=== PATIENT | female | born 2005 | race Asian ===

== ENCOUNTER 2023-09-06 07:38 | Emergency (ER) | payer OTHER, SELFPAY ==
[2023-09-06 07:53] VITALS: BP 120/83; PULSE 78; RESP 16; TEMP 36.6; O2SAT 99; BMI 31.9
--- NOTE | 2023-09-06 08:03 | ED.BACK ---
HPI - Back Pain/Injury General Time Seen by Provider: 08:03 Date Seen: 09/06/23 Chief Complaint: Back Injury/Pain Stated Complaint: back pain Time Seen by Provider: 09/06/23 08:01 Source: patient and RN notes reviewed Mode of arrival: ambulatory Limitations: no limitations History of Present Illness HPI Narrative: Patient is a 18-year-old female coming in with thoracic back pain. She slipped down icy steps over the weekend, was wearing her backpack and actually landed on her buttocks. She states her tailbone initially hurt but that is not bothering her. It is to the left of her thoracic spine in the interscapular area where she is feeling the pain. Yesterday with breathing she was getting some sharp pain in that area that affected her breathing. She has tried Tylenol and ibuprofen, it is not really helping. Movement hurts. No difficulty breathing at this time. Did not hit her head, no loss of consciousness, no neck pain, no lumbar back pain. She has a [employer] student. Patient states there is no chance for . MD elicited complaint: back pain Work related injury: No Related Data Previous Rx's Medication Instructions Recorded cyclobenzaprine 10 mg tablet 10 mg PO TID PRN muscle spasm #30 09/06/23 tabs Allergies Allergy/AdvReac Type Severity Reaction Status Date / Time No Known Drug Allergies Allergy Verified 09/06/23 07:53 Review of Systems Narrative: As per HPI. [facility] Social History Smoking Status: Never smoker How often do you have a drink containing alcohol: monthly or less How often do you have six or more drinks on one occasion: Never AUDIT-C Alcohol total score: 1 Non-prescribed substance use: denies use Exam Const: Vital Signs, click to edit/add: Vital Signs - 24 hr 09/06/23 07:53 Temperature 98 F Pulse Rate [Pulse Oximeter] 78 Respiratory Rate 16 Blood Pressure [Ri ght Upper Arm] 120/83 Pulse Oximetry 99 Oxygen Delivery Me thod Room Air Patient is a 18-year-old female that is ambulatory into the ED. She is able to sit up. She is alert, interactive, no apparent distress. On inspection of her back, see no visible signs of trauma. She points to the interscapular area of her thoracic backward is hurting. She has some central tenderness and to the left of the spine. She actually can demonstrate range of motion. Lungs are clear, good air entry, no wheezing or crackles. CV regular rate and rhythm no murmur. Her gait is normal, upper extremity strength in neurologic function intact. No tenderness in the cervical or lumbar spine. Documenting provider has reviewed patient's vital signs: yes Course Course ED Course: Will obtain x-ray images of her thoracic spine. Given the mechanism, wearing her backpack, do think that this stands to be more musculoskeletal. She is a 18-year-old female, no advanced age, mechanism and timing seem to support probable musculoskeletal issues. If there is concern on the plane images, can consider advanced imaging. Did not want to send her to CT with this mechanism and presentation given the level of radiation. [place] plain imaging is more appropriate. Will see the x-ray report, guide therapy once x-ray results are known. Reevaluation(s) Time of Reevaluation #1: 08:51 Reevaluation #1: Reviewed with patient her x-ray findings of mild scoliosis and no fracture. She is aware that she has some scoliosis. She had just been using the Tylenol and ibuprofen p.r.n., nothing scheduled. We discussed adding in a muscle relaxant. She may want to consider physical therapy if ongoing symptoms, could work through the nurse practitioner at [place] for referral if ongoing symptoms. Vital Signs Vital signs: Initial Vital Signs Temperature 98 F 09/06/23 07:53 Temperature Source Temporal Artery Scan 09/06/23 07:53 Pulse Rate 78 09/06/23 07:53 Respiratory Rate 16 09/06/23 07:53 Blood Pressure 120/83 09/06/23 07:53 Blood Pressure Mean 95 09/06/23 07:53 Blood Pressure Position Sitting 09/06/23 07:53 Pulse Oximetry 99 09/06/23 07:53 Oxygen Delivery Method Room Air 09/06/23 07:53 Vital Signs Temperature 98 F 09/06/23 07:53 Pulse Rate 78 09/06/23 07:53 Respiratory Rate 16 09/06/23 07:53 Blood Pressure 120/83 09/06/23 07:53 Pulse Oximetry 99 09/06/23 07:53 Oxygen Delivery Method Room Air 09/06/23 07:53 Temperature 98 F 09/06/23 07:53 Pulse Rate 78 09/06/23 07:53 Respiratory Rate 16 09/06/23 07:53 Blood Pressure 120/83 09/06/23 07:53 Pulse Oximetry 99 09/06/23 07:53 Oxygen Delivery Method Room Air 09/06/23 07:53 MDM - Back Pain/Injury Imaging Data XR thoracic spine: Attestation: I have reviewed the pertinent imaging results. My impression: Did review her thoracic spine images personally, do see what appears to be some scoliosis, do not appreciate acute pathology. Will await Radiology over-read. Radiologist's impression: Patient: GITA FITZGERALD Facility:?[facility] Patient ID:?[id number] Site Patient ID:?[id number]. Site :?[id number] Study:?XRay Spine Thoracic 2V-09/06/2023 8:25:44 AM Ordering Physician:?Vincent Horn Final Report: INDICATION: Fall with back injury. TECHNIQUE: Thoracic spine 2 view. COMPARISON: None. FINDINGS: Bones: Mild scoliosis. No fracture or subluxation. No bone lesions. No signs of acute injury. Joints: Disc spaces and facets are unremarkable. Soft tissues: Unremarkable. Dictated by Félix Mccormick MD @ 09/06/2023 8:38:06 AM (Electronic Signature) Critical Care Time Critical Care Time Critical Care Time: No Discharge Plan Discharge Clinical Impression: Thoracic back pain, Fall Patient Disposition: Home, Self-Care Condition: Stable Instructions: Thoracic Pain (ED) Additional Instructions: Recommend Tylenol 1000 mg 3 times a day baseline for pain for up to the next week. Can add in ibuprofen 4-600 mg 3 to 4 times a day as needed every 6 hours for extra pain control, recommend taking ibuprofen with food to protect the stomach. Can try some ice on your back, if ice makes it feel worse, transition to heat. Will give you a muscle relaxant to take, this can be sedating and you may only be able to use it at bedtime if it is too sedating for you. Otherwise, if it is not causing you too much sedation can be used 3 times a day. I would expect that your symptoms should start to improve over the next 1-2 weeks, if your back pain is worsening, do need to be re-evaluated. Activity Level: Activity as Tolerated Prescriptions: New cyclobenzaprine 10 mg tablet 10 mg PO TID PRN (Reason: muscle spasm) Qty: 30 0RF Follow Up/Referrals: Provider,Not a Local [Primary Care Provider] - Stand Alone Forms: [employer] Info Instructions
--- NOTE | 2023-09-06 08:07 | CRLHL7_ITS ---
For Patients: As a result of the Cures Act, medical imaging exams and procedure reports are released immediately into your electronic medical record. You may view this report before your referring provider. If you have questions, please contact your health care provider. INDICATION: Fall with back injury. TECHNIQUE: Thoracic spine 2 view. COMPARISON: None. FINDINGS: Bones: Mild scoliosis. No fracture or subluxation. No bone lesions. No signs of acute injury. Joints: Disc spaces and facets are unremarkable. Soft tissues: Unremarkable. Dictated by Félix Mccormick MD @ 09/06/2023 8:38:06 AM (Electronically Signed)
--- OUTSIDE RECORDS SUMMARY | 2023-09-06 08:25 | XMS_ITS | Continuity of Care Document ---
Author Name Unknown Organization [facility] Address [address] [place] [address] Phone Care Team Providers Care Specialty Transformer Assembler Name Role Phone Monalisa Xavier Unavailable Unavailable Procedures Procedure Date Office/Outpatient Visit,Denny Magaña 2018 X Ray Exam Entire Spine 10/27 19 Advance Directives Directive Yes / No Effective Date File Name No Information Encounters Encounter Description Practice Location Reason(s) For Visit Diagnoses Date Provider Providers Copied on Encounter Office/Outpat ient Visit,Denny Magaña/[facility], [address], [place], [place], [id number], [place] tel:[phone] [facility] Impingement syndrome of right shoulderLumbago 9 Diomedes Sheldon. [facility] [place], [address] [place] [address], [id number] , [place]. tel:[phone] Referring Provider: Abhinav De La Torre [address], [address]. tel:[phone] Family History Family Member Type Diagnosis Age At Onset No Information Payers Payer name Insurance type Covered democrat ID Nunu bush(s) Laurie [id number] Social History Type Description Quantity Date Captured Comments Alcohol Use Details Unknown Caffeine Use Details Unknown Tobacco Use Status No Information Smoking Status No Information Sex Female Vital Signs Date / Time: Height Weight BMI Pulse Rate Blood Pressure Temperature Respiratory Rate Body Surface Area Head Circumference Head Circ. Percentile Wt./Jadiel. Percentile BMI percentile Pulse Ox Inhaled Ox 2:30 PM 62.00 in 82.191 kg (181.20 lbs) 33.1 4 kg/m eter (2) 97 Chief Complaint And Reason For Visit No Information Reason For Referral Reason For Referral No Information Plan Of Treatment Date Type Action Status Future Order: Radiology Order PA /Lateral Full Spine (PALatFS), Ordered on: Ordered History Of Present Illness Encounter Date Complaint History Of Prese nt Illness No Information Functional Status Date Functional Assessmen t No Information Instructions Date Instruction Additional Infor mation No Information Assessments Type Assessment Date assessment Impingement syndrome of right sh oulder assessment Lumbago Patient Care Teams Name Effective Dates (start - stop) Status Members No Information
--- OUTSIDE RECORDS SUMMARY | 2023-09-06 08:25 | XMS_ITS | Continuity of Care Document ---
Author Name Unknown Organization [facility] Address [address] [place] [address] Phone Care Team Providers Care Weather Forecaster Name Role Phone Monalisa Xavier Unavailable Unavailable Procedures Procedure Date Office/Outpatient Visit,Denny Magaña 2018 X Ray Exam Entire Spine 10/27 19 Advance Directives Directive Yes / No Effective Date File Name No Information Encounters Encounter Description Practice Location Reason(s) For Visit Diagnoses Date Provider Providers Copied on Encounter Office/Outpat ient Visit,Denny Magaña/[facility], [address], [place], [place], [id number], [place] tel:[phone] [facility] Impingement syndrome of right shoulderLumbago 9 Diomedes Sheldon. [facility] [place], [address] [place] [address], [id number] , [place]. tel:[phone] Referring Provider: Abhinav De La Torre [address], [address]. tel:[phone] Family History Family Member Type Diagnosis Age At Onset No Information Payers Payer name Insurance type Covered green party ID Nunu bush(s) Laurie [id number] Social History Type Description Quantity Date Captured [...]
== END 2023-09-06 09:09 | disposition home or self-care (01) ==
PROVIDERS: Emergency Provider Family Medicine
DX: M54.6 Pain in thoracic spine (principal); W19.XXXA Unspecified fall, initial encounter
CPT/HCPCS: 72070; 95992; 99283; 99284